=== PATIENT | male | born 2000 | race Caucasian/White ===

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

== ENCOUNTER 2018-06-03 20:31 | Emergency (ER) | payer OTHER ==
[2018-06-03 20:49] VITALS: BP 136/77
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
--- NOTE | 2018-06-05 07:58 | CT ---
CT cervical spine Technique: Multiple axial sections were obtained from above C1 inferiorly to the bottom of T2. Reconstructed sagittal and coronal images were reviewed. Findings: Vertebral body heights and disc spaces are maintained. Vertebral bodies and posterior arches are intact. No bony central or bony neural foraminal stenosis is seen. No abnormal subluxation is seen. Slight kyphosis is noted on the lateral reconstructed images. Impression: 1. Kyphosis on the lateral reconstructed images either positional or due to muscle spasm. 2. No acute bony abnormality is seen. Diagnostic code #2 I agree with preliminary report from [facility], finalized on 06/03/18, 11:21 PM Central Time
--- NOTE | 2018-06-05 07:58 | CT ---
Head CT Technique: Multiple axial sections through the brain were obtained. Intravenous contrast was not utilized. Comparison: No previous intracranial imaging. Findings: Ventricles along with basal cisterns and sulci over the convexities are within normal limits for the patient's age. No abnormal parenchymal densities are seen. No evidence of intracranial hemorrhage. No midline shift or mass effect is seen. No discrete calvarial abnormality is seen. Visualized sinuses showed nothing acute. Impression: 1. Nothing acute is appreciated on noncontrast head CT study. Diagnostic code #1 I agree with preliminary report from [facility], finalized on 06/03/18, 11:33 PM Central Time
== END 2018-06-03 22:50 | disposition home or self-care (01) ==
LOC: JD.ED 20:31
DX: S06.0X9A Concussion with loss of consciousness of unspecified duration, initial encounter (principal); H91.91 Unspecified hearing loss, right ear; Z88.2 Allergy status to sulfonamides; W55.12XA Struck by horse, initial encounter
CPT/HCPCS: 70450; 70450-26; 72125; 72125-26; 99282; 99284-25